=== PATIENT | female | born 1975 | race Caucasian/White ===

== ENCOUNTER → 2021-03-12 | Outpatient (CLI) | payer OTHER ==
[~2021-03-12] MED LIST: ALPRAZOLAM0.5 MG PO; CLARITIN10 MG PO; CYCLOBENZAPRINE5 MG PO; DOXYCYCLINE HY100 M2 PO; FLAGYL500 MG PO; FLONASE 0.05% N16 GM; IBUPROFEN600 MG PO; IBUPROFEN800 MG PO; K-DUR TAB 20 M20 MEQ PO; LEXAPRO20 MG PO; LORCET PLUS 7.1 EACH PO; LORTAB 5-325 M1 EACH PO; NEURONTIN 300300 MG PO; PERCOCET 5-3251 EACH PO; PREDNISONE20 MG PO; TOPICAINE30 GM TP; VALACYCLOVIR500 MG PO; ZITHROMAX250 MG PO
== END ==
LOC: RAD 13:58
DX: M54.5 Low back pain (principal); M25.551 Pain in right hip
CPT/HCPCS: 72100; 73522

== ENCOUNTER 2022-06-15 18:54 | Emergency (ER) | payer OTHER ==
[2022-06-15 22:37] LABS: BUN/CREATININE RATIO 10 (0-10)
[2022-06-15 22:55] LABS: HEMOGLOBIN 16.1 gm/dl (12.3-15.3); RED BLOOD COUNT 4.89 M/UL (4.00-5.10); WHITE BLOOD COUNT 12.2 K/UL (4.5-11.0)
== END 2022-06-16 02:30 | disposition home or self-care (01) ==
LOC: ER1 18:54
PROVIDERS: Physician Assistant
DX: M79.10 Myalgia, unspecified site (principal); E78.5 Hyperlipidemia, unspecified; K21.9 Gastro-esophageal reflux disease without esophagitis; R00.0 Tachycardia, unspecified
CPT/HCPCS: 80053; 82652; 84439; 84443; 85025; 99283